=== PATIENT | male | born 1975 | race Caucasian/White ===

== ENCOUNTER 2016-08-30 15:23 | Emergency (ER) | payer SELFPAY ==
[2016-08-30] MEDS ORDERED: KETOROLAC 60 MG/2 ML VIAL IM ONE (15:58)
[2016-08-30] MEDS ORDERED: ORPHENADRINE 60 MG/2 ML AMP ONE (17:43)
== END 2016-08-30 19:00 | disposition home or self-care (01) ==
LOC: ER 15:23
DX: M25.511 Pain in right shoulder (principal); F17.210 Nicotine dependence, cigarettes, uncomplicated
CPT/HCPCS: 96372; 96374